=== PATIENT | female | born 1940 | race Caucasian/White ===

== ENCOUNTER 2017-03-12 19:18 | Inpatient (IN) | payer BC ==
[2017-03-12 19:41] VITALS: BMI 33.5
--- NOTE | 2017-03-12 20:20 | PDOC ---
History of Present Illness <Gretchen Laughlin - Last Filed: 03/12/17 21:26> <CristóbalKathimadyson Sarmiento - Last Filed: 03/12/17 22:25> - General Chief Complaint: Chest Pain Stated Complaint: CHEST PAIN Time Seen by Provider: 03/12/17 19:51 - History of Present Illness Initial Comments: 03/12/17 20:51 The patient is a 76 year old female, with a significant past medical history of HTN, allergies, RA, and chronic lower back pain, who presents to the emergency department with general malaise and chest pain since this morning. Patient states that she woke up this morning with nausea, dry heaves, mid-sternal chest pain and felt bleh. She also states that she has a headache, slight dry cough, and is constipated. She denies recent fevers, chills, headache or dizziness. She denies recent vomit , or diarrhea. She denies recent dysuria, frequency, urgency or hematuria. She denies recent shortness of breath. Allergies: penicillins, sulfa Past surgical history: right knee replacement, right mastectomy (87), total hysterectomy (89) Social history: Nonsmoker. Denies EtOH use and recreational drug use. Primary Care Physician: [employer] Gener[employer] Repairer: [employer] (Gretchen Lauhglin) Past History <Gretchen Laughlin - Last Filed: 03/12/17 21:26> - Past Medical History Anemia: No Asthma: No Cancer: Yes (breast) Cardiac Disorders: No CVA: No COPD: No CHF: No Dementia: No Diabetes: No GI Disorders: Yes Disorders: No HTN: Yes Hypercholesterolemia: Yes Liver Disease: No Seizures: No Thyroid Disease: No - Surgical History Abdominal Surgery: No Appendectomy: No Cardiac Surgery: No Cholecystectomy: No Lung Surgery: No Neurologic Surgery: No Orthopedic Surgery: No - Suicide/Smoking/Psychosocial Hx Smoking History: Never smoked Have you smoked in the past 12 months: No Hx Alcohol Use: No Drug/Substance Use Hx: No Substance Use Type: None Hx Substance Use Treatment: No <Kathi Ambrocio - Last Filed: 03/12/17 22:25> - Past Medical History Allergies/Adverse Reactions: Allergies Allergy/AdvReac Type Severity Reaction Status Date / Time Penicillins Allergy Severe Swelling Verified 03/12/17 19:38 Sulfa (Sulfonamide AdvReac Intermediate Rash Verified 03/12/17 19:38 Antibiotics) Home Medications: Ambulatory Orders Atorvastatin Ca [Lipitor] 20 mg PO HS 05/26/13 Folic Acid 0.8 mg PO DAILY 05/26/13 Montelukast Na [Singulair -] 10 mg PO HS 05/26/13 Nadolol 80 mg PO DAILY 05/26/13 Flaxseed [Flaxseed Oil] 1,000 mg PO DAILY 06/01/13 Multivits-Min/FA/Lycopene/Lut [Centrum Silver Tablet] 1 each PO DAILY 06/01/13 Amlodipine Besylate [Norvasc -] 2.5 mg PO DAILY 04/14/15 Etanercept [Enbrel] 50 mg SQ WEEKLY 04/14/15 Hydrochlorothiazide [Hctz -] 12.5 mg PO DAILY 04/14/15 Methotrexate [Mexate -] 20 mg PO Q7D 04/14/15 Psyllium Husk (with Sugar) [Metamucil Powder] 538 gm PO BID 04/14/15 Aspirin [ASA -] 325 mg PO DAILY@0800 tablet 04/30/15 Cardiac Specific PMH - Complaint Specific PMHX Pacemaker: No <Kathi Ambrocio - Last Filed: 03/12/17 22:25> Review of Systems <Gretchen Laughlin - Last Filed: 03/12/17 21:26> <Kathi Ambrocio - Last Filed: 03/12/17 22:25> - Review of Systems Comments:: 03/12/17 20:56 CONSTITUTIONAL: Present: Afebrile, general malaise. Absent: chills, diaphoresis, loss of appetite HEENT: Absent: rhinorrhea, nasal congestion, throat pain, throat swelling, difficulty swallowing, mouth swelling, ear pain, eye pain, visual Changes CARDIOVASCULAR: Absent: chest pain, syncope, palpitations, irregular heart rate, lightheadedness , peripheral edema RESPIRATORY: Present: cough Absent: shortness of breath, dyspnea with exertion, orthopnea, wheezing, stridor, hemoptysis GASTROINTESTINAL: Present: nausea, constipation Absent: abdominal pain, abdominal distension,vomiting, diarrhea, melena, hematochezia GENITOURINARY: Absent: dysuria, frequency, urgency, hesitancy, hematuria, flank pain, genital pain MUSCULOSKELETAL: Absent: myalgia, arthralgia, joint swelling SKIN: Absent: rash, itching, pallor HEMATOLOGIC/IMMUNOLOGIC: Absent: easy bleeding, easy bruising, lymphadenopathy, frequent infections ENDOCRINE: Absent: unexplained weight gain, unexplained weight loss, heat intolerance, cold intolerance NEUROLOGIC: Present: slight headache Absent: focal weakness or paresthesias, dizziness, unsteady gait, seizure, mental status changes, bladder or bowel incontinence (Gretchen aLughlin) *Physical Exam <Gretchen Laughlin - Last Filed: 03/12/17 21:26> <CristóbalKathi Sarmiento - Last Filed: 03/12/17 22:25> - Vital Signs Last Vital Signs Temp Pulse Resp BP Pulse Ox 101.2 F H 98 H 16 128/76 98 03/12/17 19:30 03/12/17 19:30 03/12/17 19:30 03/12/17 19:30 03/12/17 19:30 - Physical Exam Comments: 03/12/17 20:56 GENERAL: Afebrile. Well developed, well nourished. Awake and alert. No acute distress. HEENT: Normocephalic, atraumatic. PERRLA, EOMI. No conjunctival pallor. Sclera are non- icteric. Moist mucous membranes. Oropharynx is clear. NECK: Supple. Full ROM. No JVD. Carotid pulses 2+ and symmetric, without bruits. No thyromegaly. No lymphadenopathy. CARDIOVASCULAR: Tachycardic. No murmurs, rubs, or gallops. Distal pulses are 2+ and symmetric. PULMONARY: No evidence of respiratory distress. Lungs clear to auscultation bilaterally. No wheezing, rales or rhonchi. ABDOMINAL: Constipated. Soft. Non-tender. Non-distended. No rebound or guarding. No organomegaly. Normoactive bowel sounds. MUSCULOSKELETAL Normal range of motion at all joints. No bony deformities or tenderness. No CVA tenderness. EXTREMITIES: No cyanosis. No clubbing. No edema. No calf tenderness. SKIN: +1 pitting edema in lower extremities. Warm and dry. No rashes. No jaundice. NEUROLOGICAL: Alert, awake, appropriate. Cranial nerves 2-12 intact. No deficits to light touch and temperature in face, upper extremities and lower extremities. No motor deficits in the in face, upper extremities and lower extremities. Normoreflexic in the upper and lower extremities. Normal speech. Toes are down-going bilaterally. Gait is normal without ataxia. PSYCHIATRIC: Cooperative. Good eye contact. Appropriate mood and affect. (Gretchen Laughlin) Heart Score/ECG Review <Gretchen Laughlin - Last Filed: 03/12/17 21:26> <Kathi Ambrocio - Last Filed: 03/12/17 22:25> - ECG Intrepretation Comment:: 03/12/17 19:27:21 EKG Interpretation: Normal sinus rhythm Minimal voltage criteria for LVH, may be normal variant Vent. rate: 97 bpm (Gretchen Laughlin) ED Treatment Course - LABORATORY CBC & Chemistry Diagram: 03/12/17 20:30 03/12/17 20:30 <Gretchen Laughlin - Last Filed: 03/12/17 21:26> - LABORATORY CBC & Chemistry Diagram: 03/12/17 20:30 03/12/17 20:30 <Kathi Ambrocio - Last Filed: 03/12/17 22:25> - ADDITIONAL ORDERS Additional order review: Laboratory Results 03/12/17 03/12/17 03/12/17 22:00 20:32 20:32 PT with INR INR PTT (Actin FS) VBG pH 7.45 H POC VBG pCO2 39.6 POC VBG pO2 50.1 H Mixed VBG HCO3 27.3 H Sodium Potassium Chloride Carbon Dioxide Anion Gap BUN Creatinine Creat Clearance w eGFR Random Glucose Lactic Acid Calcium Total Bilirubin AST ALT Alkaline Phosphatase Creatine Kinase Troponin I B-Natriuretic Peptide Total Protein Albumin Urine Color Ltyellow Urine Appearance Clear Urine pH 8.0 D Ur Specific [place] 1.013 Urine Protein Negative Urine Glucose (UA) Negative Urine Ketones Negative Urine Blood Negative Urine Nitrite Negative Urine Bilirubin Negative Urine Urobilinogen Negative Ur Leukocyte Esterase Negative Blood Type O POSITIVE Antibody Screen Negative 03/12/17 03/12/17 03/12/17 20:30 20:30 20:30 PT with INR INR PTT (Actin FS) VBG pH POC VBG pCO2 POC VBG pO2 Mixed VBG HCO3 Sodium 138 Potassium 3.9 Chloride 101 Carbon Dioxide 26 Anion Gap 11 BUN 18 Creatinine 0.9 Creat Clearance w eGFR > 60 Random Glucose 113 H D Lactic Acid 1.4 Calcium 9.0 Total Bilirubin 0.8 D AST 21 D ALT 30 D Alkaline Phosphatase 111 Creatine Kinase 58 Troponin I < 0.02 B-Natriuretic Peptide 347.97 Total Protein 7.2 Albumin 3.7 Urine Color Urine Appearance Urine pH Ur Specific [place] Urine Protein Urine Glucose (UA) Urine Ketones Urine Blood Urine Nitrite Urine Bilirubin Urine Urobilinogen Ur Leukocyte Esterase Blood Type Antibody Screen 03/12/17 20:30 PT with INR 11.90 H INR 1.05 PTT (Actin FS) 31.2 VBG pH POC VBG pCO2 POC VBG pO2 Mixed VBG HCO3 Sodium Potassium Chloride Carbon Dioxide Anion Gap BUN Creatinine Creat Clearance w eGFR Random Glucose Lactic Acid Calcium Total Bilirubin AST ALT Alkaline Phosphatase Creatine Kinase Troponin I B-Natriuretic Peptide Total Protein Albumin Urine Color Urine Appearance Urine pH Ur Specific [place] Urine Protein Urine Glucose (UA) Urine Ketones Urine Blood Urine Nitrite Urine Bilirubin Urine Urobilinogen Ur Leukocyte Esterase Blood Type Antibody Screen 03/12/17 20:50 Influenza Types A,B Antigen (NAOMIE) - Final Nasopharyngeal Swab - Final 03/12/17 20:30 RBC 4.55 D MCV 97.7 H MCHC 33.3 RDW 14.2 MPV 8.8 D Neutrophils % 84.2 H Lymphocytes % 6.7 L Monocytes % 8.5 Eosinophils % 0.1 D Basophils % 0.5 - RADIOLOGY Radiology Studies Ordered: Category Date Time Status CHEST X-RAY PORTABLE* [RAD] Stat Radiology 03/12/17 20:28 Taken - Medications Given in the ED: ED Medications Discontinued Medications Generic Name Dose Route Start Last Admin Trade Name Porterq PRN Reason Stop Dose Admin Acetaminophen 1,000 mg 03/12/17 20:30 03/12/17 20:51 Ofirmev Injection - IVPB 03/12/17 20:31 1,000 mg ONCE ONE Administration Ondansetron HCl 4 mg 03/12/17 20:30 03/12/17 20:52 Zofran Injection IVPUSH 03/12/17 20:31 4 mg ONCE ONE Administration *DC/Admit/Observation/Transfer <Gretchen Laughlin - Last Filed: 03/12/17 21:26> - Discharge Dispostion Admit: Yes <Kathi Ambrocio - Last Filed: 03/12/17 22:25> Diagnosis at time of Disposition: Atypical chest pain Fever Qualifiers: Fever type: due to other condition Qualified Code(s): R50.81 - Fever presenting with conditions classified elsewhere Pneumonia Qualifiers: Pneumonia type: due to unspecified organism Laterality: left Lung location: unspecified part of lung Qualified Code(s): J18.9 - Pneumonia, unspecified organism - Referrals Referrals: Jan Dodson MD [Primary Care Provider] - - Patient Instructions - Post Discharge Activity - Attestations Scribe Attestion: 03/12/17 20:59 Documentation prepared by Gretchen Laughlin, acting as medical aide for Kathi Ambrocio MD. (Truman,Gretchen)
[2017-03-12] MEDS ORDERED: ACETAMINOPHEN 1000 MG/100 ML VIAL (NON FORMULARY) IVPB ONE (20:30)
[2017-03-12] MEDS ORDERED: ONDANSETRON 4 MG/2 ML VIAL IVPUSH ONE (20:30)
[2017-03-12] MEDS ORDERED: ONDANSETRON 4 MG/2 ML VIAL ONE (20:42)
[2017-03-12] MEDS ORDERED: ACETAMINOPHEN INJECTION 100 ML IVPB ONE (20:42)
[2017-03-12 21:04] LABS: VENOUS PC02 39.6 mmHg (38-52); VENOUS PH 7.45 (7.32-7.42); VENOUS PO2 50.1 mmHg (28-48)
[2017-03-12 21:19] LABS: BASO % 0.5 % (0-2.0); EOS % 0.1 % (0-4.5); HEMATOCRIT 44.4 % (32.4-45.2); HEMOGLOBIN 14.8 GM/dL (10.7-15.3); LYMPH % 6.7 % (8-40); MCH 32.5 pg (25.7-33.7); MCHC 33.3 g/dl (32.0-36.0); MEAN CELL VOLUME 97.7 fl (80-96); MEAN PLT VOLUME 8.8 fl (7.5-11.1); MONO % 8.5 % (3.8-10.2); NEUT % 84.2 % (42.8-82.8); PLATELET COUNT 242 K/MM3 (134-434); RBC 4.55 M/mm3 (3.60-5.2); RDW 14.2 % (11.6-15.6); WHITE BLOOD COUNT 11.2 K/mm3 (4.0-10.0)
[2017-03-12 21:37] LABS: INR 1.05 (0.82-1.09); PROTHROMBIN TIME (PATIENT) 11.9 SEC (9.98-11.88)
[2017-03-12 21:40] LABS: ACTIVATED PTT 31.2 SECONDS (26.9-34.4)
[2017-03-12 21:49] LABS: ALBUMIN 3.7 g/dl (3.4-5.0); ANION GAP 11 (8-16); BLOOD UREA NITROGEN 18 mg/dL (7-18); CHLORIDE 101 mmol/L (98-107); CO2 26 mmol/L (21-32); CREATININE 0.9 mg/dL (0.55-1.02); GLUCOSE,RANDOM 113 mg/dL (74-106); POTASSIUM 3.9 mmol/L (3.5-5.1); SGOT/AST 21 U/L (15-37); SGPT/ALT 30 U/L (12-78); SODIUM 138 mmol/L (136-145)
[2017-03-12 21:57] LABS: ALK PHOS 111 U/L (45-117); BILIRUBIN,TOTAL 0.8 mg/dL (0.2-1.0); TOT PROT 7.2 g/dl (6.4-8.2)
[2017-03-12] MEDS ORDERED: AZTREONAM 1 GM in DEXTROSE 5%-WATER - 50 ML IVPB STA (22:16)
--- NOTE | 2017-03-12 22:16 | PN ---
Teaching Attending Note Name of Resident: Jason Alvarado ATTENDING PHYSICIAN STATEMENT I saw and evaluated the patient. I reviewed the resident's note and discussed the case with the resident. I agree with the resident's findings and plan as documented. SUBJECTIVE: 76 F with pmhx of htn, RA, chronic back pain, who presents with nausea and midsternal chest pain. Also, had associated "dry heaves." States she is on Methotrexate and Enbrel for her RA. States she takes her flu shot and has not been around any sick contacts. Notes a cough, although not productive. No abdominal pain. Nausea has now subsided. No current chest pain or pressure. OBJECTIVE: Physical: VS: Vital Signs Period Temp Pulse Resp BP Sys/Tang Pulse Ox Last 24 Hr 101.2 F 98 16 128/76 98 GEN: NAD, Resting in bed, able to speak full sentences HEENT: NCAT, PERRL, throat without erythema or exudates CARD: RRR S1, S2 RESP: BS Decreased at left base ABD: BS X4, Soft, not-distended, non-tender to palpation EXT: - C/C/E CBCD WBC 11.2 K/mm3 (4.0-10.0) H D 03/12/17 20:30 RBC 4.55 M/mm3 (3.60-5.2) D 03/12/17 20:30 Hgb 14.8 GM/dL (10.7-15.3) D 03/12/17 20:30 Hct 44.4 % (32.4-45.2) D 03/12/17 20:30 MCV 97.7 fl (80-96) H 03/12/17 20:30 MCHC 33.3 g/dl (32.0-36.0) 03/12/17 20:30 RDW 14.2 % (11.6-15.6) 03/12/17 20:30 Plt Count 242 K/MM3 (134-434) D 03/12/17 20:30 MPV 8.8 fl (7.5-11.1) D 03/12/17 20:30 CMP Sodium 138 mmol/L (136-145) 03/12/17 20:30 Potassium 3.9 mmol/L (3.5-5.1) 03/12/17 20:30 Chloride 101 mmol/L (98-107) 03/12/17 20:30 Carbon Dioxide 26 mmol/L (21-32) 03/12/17 20:30 Anion Gap 11 (8-16) 03/12/17 20:30 BUN 18 mg/dL (7-18) 03/12/17 20:30 Creatinine 0.9 mg/dL (0.55-1.02) 03/12/17 20:30 Creat Clearance w eGFR > 60 (>60) 03/12/17 20:30 Random Glucose 113 mg/dL (74-106) H D 03/12/17 20:30 Calcium 9.0 mg/dL (8.5-10.1) 03/12/17 20:30 Total Bilirubin 0.8 mg/dL (0.2-1.0) D 03/12/17 20:30 AST 21 U/L (15-37) D 03/12/17 20:30 ALT 30 U/L (12-78) D 03/12/17 20:30 Alkaline Phosphatase 111 U/L (45-117) 03/12/17 20:30 Total Protein 7.2 g/dl (6.4-8.2) 03/12/17 20:30 Albumin 3.7 g/dl (3.4-5.0) 03/12/17 20:30 CARDIAC ENZYMES Creatine Kinase 58 IU/L (26-192) 03/12/17 20:30 Troponin I < 0.02 ng/ml (0.00-0.05) 03/12/17 20:30 EKG: NSR, LVH, Qtc 459 CXR- ? Consolidation Left base, await final read HEART- 2 Home Medications Medication Instructions Recorded Atorvastatin Ca [Lipitor] 20 mg PO HS 05/26/13 Folic Acid 0.8 mg PO DAILY 05/26/13 Montelukast Na [Singulair -] 10 mg PO HS 05/26/13 Nadolol 80 mg PO DAILY 05/26/13 Flaxseed [Flaxseed Oil] 1,000 mg PO DAILY 06/01/13 Multivits-Min/FA/Lycopene/Lut 1 each PO DAILY 06/01/13 [Centrum Silver Tablet] Amlodipine Besylate [Norvasc -] 2.5 mg PO DAILY 04/14/15 Etanercept [Enbrel] 50 mg SQ WEEKLY 04/14/15 Hydrochlorothiazide [Hctz -] 12.5 mg PO DAILY 04/14/15 Methotrexate [Mexate -] 20 mg PO Q7D 04/14/15 Psyllium Husk (with Sugar) 538 gm PO BID 04/14/15 [Metamucil Powder] Aspirin [ASA -] 325 mg PO DAILY@0800 tablet 04/30/15 Urine Test Results Urine Color Ltyellow 03/12/17 22:00 Urine Appearance Clear 03/12/17 22:00 Urine pH 8.0 (5.0-8.0) D 03/12/17 22:00 Ur Specific [place] 1.013 (1.001-1.035) 03/12/17 22:00 Urine Protein Negative (NEGATIVE) 03/12/17 22:00 Urine Glucose (UA) Negative (NEGATIVE) 03/12/17 22:00 Urine Ketones Negative (NEGATIVE) 03/12/17 22:00 Urine Blood Negative (NEGATIVE) 03/12/17 22:00 Urine Nitrite Negative (NEGATIVE) 03/12/17 22:00 Urine Bilirubin Negative (NEGATIVE) 03/12/17 22:00 Ur Leukocyte Esterase Negative (NEGATIVE) 03/12/17 22:00 ASSESSMENT AND PLAN: 76 F with pmhx of htn, RA, chronic back pain, who presents with nausea and midsternal chest pain, who is being admitted for possible pneumonia 1.) Pnuemonia, Community Aquired - Immunocompromised due to RA meds - Broad spectrum with Vanc/Aztreo (PCN Allergy) - Urine Ags - Morin Cx - Repeat LA - IVF 2.) Chest Pain - Atypical - Trend Trop/EKg 3.) RA - Enbrel and Mexate Q wk - Hold for now - C/W Folic Acid 4.) HTN - C/W Home meds 5.) Dvt Ppx - Heparin [address] in Med-Sx
[2017-03-12] MEDS ORDERED: VANCOMYCIN 1,000 MG in DEXTROSE 5%-WATER - 250 ML IVPB STA (22:17)
--- NOTE | 2017-03-12 22:18 | HP ---
CHIEF COMPLAINT: Chest pain , Nausea PCP:Dr. Dodson HISTORY OF PRESENT ILLNESS: The patient is a 76 year old female, with a significant past medical history of HTN, allergies, RA, and chronic lower back pain, who presents to the emergency department with general malaise and chest pain since this morning. Patient states that she woke up this morning with nausea, dry heaves, mid-sternal chest pain 5/10, local non radiating, not related to position. She also states that she has a headache, slight dry cough, and is constipated. She reports runny nose with some congestion today morning She denies recent fevers, chills, lightheadedness or dizziness. She denies recent vomit, or diarrhea. She denies recent dysuria, frequency, urgency or hematuria. She denies recent shortness of breath. denies sick contact or recent tarvel. [employer] Advisor: Lefty ER course was notable for: (1) CXR , IV ABX Aztreonam/ vanco (2)CBC, CMP (3)UA negative , Influenza A,B negative Recent Travel: denies PAST MEDICAL HISTORY: PAST SURGICAL HISTORY: right knee replacement, right mastectomy (87), total hysterectomy (89) Social History: Smoking:NO Alcohol:NO Drugs: NO Family History: lorier @ 92 YO , old age Mother @ 69 with Epmyema Allergies Penicillins Allergy (Severe, Verified 03/12/17 19:38) Swelling Sulfa (Sulfonamide Antibiotics) Adverse Reaction (Intermediate, Verified 19:38) Rash HOME MEDICATIONS: Home Medications Medication Instructions Recorded Atorvastatin Ca [Lipitor] 20 mg PO HS 05/26/13 Folic Acid 0.8 mg PO DAILY 05/26/13 Montelukast Na [Singulair -] 10 mg PO HS 05/26/13 Nadolol 80 mg PO DAILY 05/26/13 Flaxseed [Flaxseed Oil] 1,000 mg PO DAILY 06/01/13 Multivits-Min/FA/Lycopene/Lut 1 each PO DAILY 06/01/13 [Centrum Silver Tablet] Amlodipine Besylate [Norvasc -] 2.5 mg PO DAILY 04/14/15 Etanercept [Enbrel] 50 mg SQ WEEKLY 04/14/15 Hydrochlorothiazide [Hctz -] 12.5 mg PO DAILY 04/14/15 Methotrexate [Mexate -] 20 mg PO Q7D 04/14/15 Psyllium Husk (with Sugar) 538 gm PO BID 04/14/15 [Metamucil Powder] Aspirin [ASA -] 325 mg PO DAILY@0800 tablet 04/30/15 REVIEW OF SYSTEMS CONSTITUTIONAL: Absent: fever, chills, diaphoresis, generalized weakness, malaise, loss of appetite, weight change HEENT: Absent: rhinorrhea, nasal congestion, throat pain, throat swelling, difficulty swallowing, mouth swelling, ear pain, eye pain, visual changes CARDIOVASCULAR: Absent: chest pain, syncope, palpitations, irregular heart rate, lightheadedness , peripheral edema RESPIRATORY: Absent: cough, shortness of breath, dyspnea with exertion, orthopnea, wheezing, stridor, hemoptysis GASTROINTESTINAL: Absent: abdominal pain, abdominal distension, nausea, vomiting, diarrhea, constipation, melena, hematochezia GENITOURINARY: Absent: dysuria, frequency, urgency, hesitancy, hematuria, flank pain, genital pain MUSCULOSKELETAL: Absent: myalgia, arthralgia, joint swelling, back pain, neck pain SKIN: Absent: rash, itching, pallor HEMATOLOGIC/IMMUNOLOGIC: Absent: easy bleeding, easy bruising, lymphadenopathy, frequent infections ENDOCRINE: Absent: unexplained weight gain, unexplained weight loss, heat intolerance, cold intolerance NEUROLOGIC: Absent: headache, focal weakness or paresthesias, dizziness, unsteady gait, seizure, mental status changes, bladder or bowel incontinence PSYCHIATRIC: Absent: anxiety, depression, suicidal or homicidal ideation, hallucinations. PHYSICAL EXAMINATION Vital Signs - 24 hr 03/12/17 19:30 Temperature 101.2 F H Pulse Rate 98 H Respiratory 16 Rate Blood Pressure 128/76 O2 Sat by Pulse 98 Oximetry (%) GENERAL: Awake, alert, and fully oriented, in no acute distress. HEAD: Normal with no signs of trauma. EYES: Pupils equal, round and reactive to light, sclera anicteric, conjunctiva clear. EARS, NOSE, THROAT: Moist mucous membranes. NECK: Normal range of motion, supple without lymphadenopathy, LUNGS: Breath sounds equal, clear to auscultation bilaterally. No wheezes, and no crackles. No accessory muscle use. HEART: Regular rate and rhythm, normal S1 and S2 without murmur, rub or gallop. ABDOMEN: Soft, nontender, not distended, normoactive bowel sounds, no guarding, no rebound, no masses. No hepatomegaly or splenomegaly. LOWER EXTREMITIES: 2+ pulses, warm, well-perfused. No calf tenderness. trace peripheral edema. NEUROLOGICAL: no focal deficit ,Normal speech. Normal gait. PSYCHIATRIC: Cooperative. Good eye contact. Appropriate mood and affect. SKIN: Warm, dry, normal turgor, no rashes or lesions noted, Laboratory Results - last 24 hr 03/12/17 03/12/17 03/12/17 20:30 20:30 20:30 WBC 11.2 H D RBC 4.55 D Hgb 14.8 D Hct 44.4 D MCV 97.7 H MCH 32.5 MCHC 33.3 RDW 14.2 Plt Count 242 D MPV 8.8 D Neutrophils % 84.2 H Lymphocytes % 6.7 L Monocytes % 8.5 Eosinophils % 0.1 D Basophils % 0.5 PT with INR 11.90 H INR 1.05 PTT (Actin FS) 31.2 VBG pH POC VBG pCO2 POC VBG pO2 Mixed VBG HCO3 Sodium 138 Potassium 3.9 Chloride 101 Carbon Dioxide 26 Anion Gap 11 BUN 18 Creatinine 0.9 Creat Clearance w eGFR > 60 Random Glucose 113 H D Lactic Acid Calcium 9.0 Total Bilirubin 0.8 D AST 21 D ALT 30 D Alkaline Phosphatase 111 Creatine Kinase 58 Troponin I < 0.02 B-Natriuretic Peptide Total Protein 7.2 Albumin 3.7 Blood Type Antibody Screen 03/12/17 03/12/17 03/12/17 20:30 20:30 20:32 WBC RBC Hgb Hct MCV MCH MCHC RDW Plt Count MPV Neutrophils % Lymphocytes % Monocytes % Eosinophils % Basophils % PT with INR INR PTT (Actin FS) VBG pH 7.45 H POC VBG pCO2 39.6 POC VBG pO2 50.1 H Mixed VBG HCO3 27.3 H Sodium Potassium Chloride Carbon Dioxide Anion Gap BUN Creatinine Creat Clearance w eGFR Random Glucose Lactic Acid 1.4 Calcium Total Bilirubin AST ALT Alkaline Phosphatase Creatine Kinase Troponin I B-Natriuretic Peptide 347.97 Total Protein Albumin Blood Type Antibody Screen 03/12/17 20:32 WBC RBC Hgb Hct MCV MCH MCHC RDW Plt Count MPV Neutrophils % Lymphocytes % Monocytes % Eosinophils % Basophils % PT with INR INR PTT (Actin FS) VBG pH POC VBG pCO2 POC VBG pO2 Mixed VBG HCO3 Sodium Potassium Chloride Carbon Dioxide Anion Gap BUN Creatinine Creat Clearance w eGFR Random Glucose Lactic Acid Calcium Total Bilirubin AST ALT Alkaline Phosphatase Creatine Kinase Troponin I B-Natriuretic Peptide Total Protein Albumin Blood Type O POSITIVE Antibody Screen Negative CBC, BMP 03/12/17 20:30 03/12/17 20:30 03/12/2017 CXR pending reading EKG NSR, QT 362 , please caution with zofran ASSESSMENT/PLAN: The patient is a 76 year old female, with a significant past medical history of HTN, allergies, RA, and chronic lower back pain, who presents to the emergency department with general malaise and chest pain since this morning. was found to have sepsis 2/2 possible pneumonia was admitted to [facility] for further evaluation and treatment. # Sepsis 2/2 possible CAP * temp 101.2 , HR 98, possible pneumonia * CXR pending reading * Influenza A,B negative * sputum cx , urine cx * UA negative * LA f/u result * repeat CBC, CMP , CRP , ESR * urine legionella Ag * Immunocompromised due to RA meds * Broad spectrum with Vanc/Aztreo, allergic to pen * IV fluid NS @75 cc/hr # Chest pain atypical likely 2/2 pneumonia unlikely CA * EKG sinus Rhythm with no significant ST,T wave changes * Trend trop , * # HTN * controlled * continue Norvasc 2.5 mg Po daily * continue HCTZ 12.5 daily PO * Continue Nadolol 80 po daily # Nausea * with little vomitting * Zofran 4 mg IV once in ED * QT 362 please be caution with zofran # HLD * continue Lipitor 20 Po HS # RA * in no flares * Hold home meds Methotrexat and ethanercept * Continue folic acid # Obesity * BMI 33.5 * Counselled * HGBA1C # FEN * NS @ 75 CC/hr * E: WNL * N: low sodium diet #Proph * DVT : SCDS Both legs , Hep 5000 Qhr * GI : No need # Dispo * Admit to med surg Visit type - Emergency Visit Emergency Visit: Yes ED Registration Date: 03/12/17 Care time: The patient presented to the Emergency Department on the above date and was hospitalized for further evaluation of their emergent condition. - New Patient This patient is new to me today: No - Critical Care Critical Care patient: No
[2017-03-12 22:21] LABS: URINE APPEARANCE CLEAR; URINE BILIRUBIN NEGATIVE (NEGATIVE); URINE BLOOD NEGATIVE (NEGATIVE); URINE COLOR LTYELLOW; URINE GLUCOSE (UA) NEGATIVE (NEGATIVE); URINE KETONE NEGATIVE (NEGATIVE); URINE LEUK ESTERASE NEGATIVE (NEGATIVE); URINE NITRITE NEGATIVE (NEGATIVE); URINE PROTEIN NEGATIVE (NEGATIVE); URINE UROBILINOGEN NEGATIVE mg/dL (0.2-1.0)
[2017-03-12] MEDS ORDERED: VANCOMYCIN 1 GRAM (PRE-DOCKED) 1,000 MG/250 ML BAG IVPB ONE (22:49)
[2017-03-12] MEDS ORDERED: AZTREONAM 1 GRAM SYRINGE 1 GM/10 ML DISP.SYRIN IVPUSH ONE (23:00)
[2017-03-12] MEDS ORDERED: ACETAMINOPHEN 325 MG TABLET (FP) PO PRN (23:04)
[2017-03-12] MEDS ORDERED: METHOTREXATE 2.5 MG TABLET PO SCH (23:30)
[2017-03-12] MEDS ORDERED: PATIENT'S OWN MEDICATION (NON-FORMULARY) (Etanercept [Enbrel] 50 MG) SQ SCH (23:30)
[2017-03-12] MEDS: SODIUM CHLORIDE 1,000 ML IV SCH (23:52)
[2017-03-13] MEDS: HEPARIN NA (PORCINE) 5,000 UNITS/ML 1ML VIAL SQ SCH ×3 (06:36→21:33)
[2017-03-13 07:11] LABS: ANION GAP 6 (8-16); BILIRUBIN,TOTAL 1.1 mg/dL (0.2-1.0); BLOOD UREA NITROGEN 14 mg/dL (7-18); CALCIUM 8.1 mg/dL (8.5-10.1); CHLORIDE 108 mmol/L (98-107); CO2 28 mmol/L (21-32); CREATININE 0.7 mg/dL (0.55-1.02); GLUCOSE,RANDOM 97 mg/dL (74-106); POTASSIUM 3.7 mmol/L (3.5-5.1); SGOT/AST 14 U/L (15-37); SGPT/ALT 24 U/L (12-78); SODIUM 142 mmol/L (136-145); TOT PROT 5.9 g/dl (6.4-8.2)
[2017-03-13 07:12] LABS: ALK PHOS 87 U/L (45-117)
[2017-03-13] MEDS ORDERED: PT OWN MED DRAWER 7, Y5N ONE (09:26)
[2017-03-13] MEDS: FOLIC ACID 1 MG TABLET (FP) PO SCH (09:37)
[2017-03-13] MEDS: ASPIRIN 325 MG TABLET PO SCH (09:37)
[2017-03-13] MEDS ORDERED: FLAXSEED 1000 MG PO SCH (10:00)
[2017-03-13] MEDS ORDERED: amLODIPine BESYLATE 2.5 MG TABLET (FP) PO SCH ×2 (10:00→10:06)
[2017-03-13] MEDS ORDERED: NADOLOL 40 MG TABLET (FP) PO SCH ×2 (10:00→10:06)
[2017-03-13] MEDS ORDERED: HYDROCHLOROTHIAZIDE 12.5 MG CAPSULE (FP) PO SCH ×2 (10:00→10:05)
--- NOTE | 2017-03-13 10:33 | PN ---
Progress Note, Physician Chief Complaint: Ms Rosas says she is feeling much better today. She has more energy and is no longer feeling malaise. No cp, sob, n/v. - Current Medication List Current Medications: Active Medications Acetaminophen (Tylenol -) 650 mg PO Q6H PRN PRN Reason: FEVER OR PAIN Last Admin: 03/13/17 06:35 Dose: 650 mg Amlodipine Besylate (Norvasc -) 2.5 mg PO DAILY [facility] Aspirin (Asa -) 325 mg PO DAILY@0800 [facility] Last Admin: 03/13/17 09:37 Dose: 325 mg Atorvastatin Calcium (Lipitor -) 20 mg PO HS [facility] Folic Acid (Folic Acid -) 1 mg PO DAILY [facility] Last Admin: 03/13/17 09:37 Dose: 1 mg Heparin Sodium (Porcine) (Heparin -) 5,000 unit SQ TID [facility] Last Admin: 03/13/17 06:36 Dose: 5,000 unit Hydrochlorothiazide (Hctz -) 12.5 mg PO DAILY [facility] Sodium Chloride (Normal Saline -) 1,000 mls @ 75 mls/hr IV ASDIR [facility] Last Admin: 03/12/17 23:52 Dose: 75 mls/hr Montelukast Sodium (Singulair -) 10 mg PO HS [facility] Nadolol (Corgard -) 80 mg PO DAILY [facility] - Objective Vital Signs: Vital Signs Temperature 36.9 C 03/13/17 06:00 Pulse Rate 75 03/13/17 09:53 Respiratory Rate 20 03/13/17 06:00 Blood Pressure 107/72 03/13/17 06:00 O2 Sat by Pulse Oximetry (%) 96 03/13/17 09:53 Constitutional: Yes: Well Nourished, No Distress, Calm Cardiovascular: Yes: Regular Rate and Rhythm. No: Gallop, Murmur, Rub Respiratory: Yes: Regular, CTA Bilaterally. No: Rhonchi, Wheezes Gastrointestinal: Yes: Normal Bowel Sounds, Soft. No: Distention, Tenderness Extremities: Yes: WNL Edema: No Labs: CBC, BMP 03/12/17 20:30 03/13/17 05:10 INR, PTT INR 1.05 (0.82-1.09) 03/12/17 20:30 Problem List - Problems (1) SIRS (systemic inflammatory response syndrome) Assessment/Plan: -patient presents with sepsis/SIRS picture -feeling improved today -with quick recovery, ? viral illness -however since immunocompromised must treat as bacterial infection -appreciate ID assistance -received vancomycin and aztreonam -defer further antibiotics to ID -follow up cultures Code(s): R65.10 - SIRS OF NON-INFECTIOUS ORIGIN W/O ACUTE ORGAN DYSFUNCTION (2) HTN (hypertension) Assessment/Plan: -low blood pressure secondary SIRS -continue hydration -hold parameters placed on anti-hypertensives Code(s): I10 - ESSENTIAL (PRIMARY) HYPERTENSION (3) HLD (hyperlipidemia) Assessment/Plan: -continue statin Code(s): E78.5 - HYPERLIPIDEMIA, UNSPECIFIED (4) Rheumatoid arthritis Assessment/Plan: -holding medications while treating for infection Code(s): M06.9 - RHEUMATOID ARTHRITIS, UNSPECIFIED
--- NOTE | 2017-03-13 12:21 | EKG ---
Test Reason : Blood Pressure : / mmHG Vent. Rate : 069 BPM Atrial Rate : 069 BPM P-R Int : 192 ms QRS Dur : 078 ms QT Int : 420 ms P-R-T Axes : 047 001 035 degrees QTc Int : 450 ms NORMAL SINUS RHYTHM NORMAL ECG WHEN COMPARED WITH ECG OF 26-MAY-2013 11:24, VENT. RATE HAS DECREASED BY [address] SEGMENT ELEVATION NOTED ? PERICARDITIS ? NORMAL VARIANT CLINICAL CORRELATION IS RECOMMENDED Confirmed by KJ EVANS, COURTNEY ([id number]) on 03/13/2017 12:21:27 PM Referred By: Confirmed By:COURTNEY UNDERWOOD MD
--- NOTE | 2017-03-13 12:44 | EKG ---
Test Reason : Blood Pressure : / mmHG Vent. Rate : 097 BPM Atrial Rate : 097 BPM P-R Int : 172 ms QRS Dur : 074 ms QT Int : 362 ms P-R-T Axes : 038 -11 041 degrees QTc Int : 459 ms NORMAL SINUS RHYTHM MINIMAL VOLTAGE CRITERIA FOR LVH, MAY BE NORMAL VARIANT BORDERLINE ECG WHEN COMPARED WITH ECG OF 26-MAY-2013 11:24, NO SIGNIFICANT CHANGE WAS FOUND Confirmed by KJ EVANS, COURTNEY ([id number]) on 03/13/2017 12:44:16 PM Referred By: Confirmed By:COURTNEY UNDERWOOD MD
--- NOTE | 2017-03-13 14:00 | CON.ID ---
Consult Consult Specialty:: infectious diseases Reason for Consultation:: pna - History of Present Illness Chief Complaint: chest pain History of Present Illness: 76 year old female, with a significant past medical history of HTN, allergies, RA, and chronic lower back pain, admitted because of general malaise and chest pain since this morning. Patient states that she woke up this morning with nausea, dry heaves, mid-sternal chest pain 5/10, local non radiating, not related to position. She also states that she has a headache, slight dry cough, and is constipated. She reports runny nose with some congestion today morning She denies recent fevers, chills, lightheadedness or dizziness. She denies recent vomit, or diarrhea. She denies recent dysuria, frequency, urgency or hematuria. She denies recent shortness of breath. denies sick contact or recent travel currently patient does not have any complaints and breathng much better and patient mentions that chest pain has subsided patient is on embril patient received vanco and aztreonam - History Source History Provided By: Patient Limitations to Obtaining History: No Limitations - Past Medical History ...: No - Alcohol/Substance Use Hx Alcohol Use: No - Smoking History Smoking history: Never smoked Have you smoked in the past 12 months: No Home Medications - Allergies Allergies/Adverse Reactions: Allergies Allergy/AdvReac Type Severity Reaction Status Date / Time Penicillins Allergy Severe Swelling Verified 03/12/17 19:38 Sulfa (Sulfonamide AdvReac Intermediate Rash Verified 03/12/17 19:38 Antibiotics) - Home Medications Home Medications: Ambulatory Orders Atorvastatin Ca [Lipitor] 20 mg PO HS 05/26/13 Folic Acid 0.8 mg PO DAILY 05/26/13 Montelukast Na [Singulair -] 10 mg PO HS 05/26/13 Nadolol 80 mg PO DAILY 05/26/13 Flaxseed [Flaxseed Oil] 1,000 mg PO DAILY 06/01/13 Multivits-Min/FA/Lycopene/Lut [Centrum Silver Tablet] 1 each PO DAILY 06/01/13 Amlodipine Besylate [Norvasc -] 2.5 mg PO DAILY 04/14/15 Etanercept [Enbrel] 50 mg SQ WEEKLY 04/14/15 Hydrochlorothiazide [Hctz -] 12.5 mg PO DAILY 04/14/15 Methotrexate [Mexate -] 20 mg PO Q7D 04/14/15 Psyllium Husk (with Sugar) [Metamucil Powder] 538 gm PO BID 04/14/15 Aspirin [ASA -] 325 mg PO DAILY@0800 tablet 04/30/15 Review of Systems - Review of Systems Constitutional: reports: No Symptoms Eyes: reports: No Symptoms HENT: reports: No Symptoms Neck: reports: No Symptoms Cardiovascular: reports: Chest Pain Respiratory: reports: No Symptoms Gastrointestinal: reports: No Symptoms Genitourinary: reports: No Symptoms Musculoskeletal: reports: No Symptoms Integumentary: reports: No Symptoms Neurological: reports: No Symptoms Endocrine: reports: No Symptoms Hematology/Lymphatic: reports: No Symptoms Psychiatric: reports: No Symptoms Physical Exam Vital Signs: Vital Signs Temperature 98.5 F 03/13/17 06:00 Pulse Rate 83 03/13/17 10:00 Respiratory Rate 19 03/13/17 10:00 Blood Pressure 101/73 03/13/17 10:00 O2 Sat by Pulse Oximetry (%) 96 03/13/17 09:53 Constitutional: Yes: Well Nourished, No Distress, Calm Cardiovascular: Yes: Regular Rate and Rhythm Respiratory: Yes: Regular, CTA Bilaterally Gastrointestinal: Yes: Normal Bowel Sounds, Soft Musculoskeletal: Yes: WNL Extremities: Yes: WNL Neurological: Yes: Alert, Oriented Psychiatric: Yes: Alert, Oriented Labs: CBC, BMP 03/12/17 20:30 03/13/17 05:10 Imaging - Results Chest X-ray: Report Reviewed, Image Reviewed Assessment/Plan after looking at the history and examining the patient i doubt patient has infection or pna Problem List - Problems (1) SIRS (systemic inflammatory response syndrome) Code(s): R65.10 - SIRS OF NON-INFECTIOUS ORIGIN W/O ACUTE ORGAN DYSFUNCTION (2) HTN (hypertension) Code(s): I10 - ESSENTIAL (PRIMARY) HYPERTENSION (3) HLD (hyperlipidemia) Code(s): E78.5 - HYPERLIPIDEMIA, UNSPECIFIED (4) Rheumatoid arthritis Code(s): M06.9 - RHEUMATOID ARTHRITIS, UNSPECIFIED plan no abx at this time will see what cx show if cx remain negative nothing to be given
[2017-03-13] MEDS: SODIUM CHLORIDE 1,000 ML IV SCH ×2 (15:54→21:33)
[2017-03-13] MEDS ORDERED: MONTELUKAST NA 10 MG TABLET PO SCH (22:00)
[2017-03-13] MEDS ORDERED: ATORVASTATIN CA 20 MG TABLET (FP) PO SCH (22:00)
[2017-03-14] MEDS: HEPARIN NA (PORCINE) 5,000 UNITS/ML 1ML VIAL SQ SCH ×2 (05:19→14:55)
[2017-03-14 06:46] LABS: EOS % 7.5 % (0-4.5); HEMATOCRIT 39.9 % (32.4-45.2); HEMOGLOBIN 13.4 GM/dL (10.7-15.3); LYMPH % 8.7 % (8-40); MCH 32.7 pg (25.7-33.7); MCHC 33.5 g/dl (32.0-36.0); MEAN CELL VOLUME 97.6 fl (80-96); MONO % 11.7 % (3.8-10.2); NEUT % 71.1 % (42.8-82.8); PLATELET COUNT 207 K/MM3 (134-434); RBC 4.09 M/mm3 (3.60-5.2); RDW 14.1 % (11.6-15.6); WHITE BLOOD COUNT 5.7 K/mm3 (4.0-10.0)
[2017-03-14 07:16] LABS: ANION GAP 9 (8-16); BLOOD UREA NITROGEN 13 mg/dL (7-18); CALCIUM 8.1 mg/dL (8.5-10.1); CHLORIDE 106 mmol/L (98-107); CO2 26 mmol/L (21-32); CREATININE 0.7 mg/dL (0.55-1.02); GLUCOSE,RANDOM 76 mg/dL (74-106); MAGNESIUM 2.1 mg/dL (1.8-2.4); PHOSPHOROUS 2.3 mg/dL (2.5-4.9); POTASSIUM 3.9 mmol/L (3.5-5.1); SODIUM 141 mmol/L (136-145)
[2017-03-14] MEDS: ASPIRIN 325 MG TABLET PO SCH (08:18)
[2017-03-14] MEDS ORDERED: PT OWN MED DRAWER 7, Y5N ONE (10:28)
--- NOTE | 2017-03-14 10:59 | DS ---
Physical Examination Vital Signs: Vital Signs Temperature 36.8 C 03/14/17 06:00 Pulse Rate 77 03/14/17 06:00 Respiratory Rate 19 03/14/17 06:00 Blood Pressure 112/84 03/14/17 06:00 O2 Sat by Pulse Oximetry (%) 96 03/13/17 20:17 Constitutional: Yes: Well Nourished, No Distress, Calm Cardiovascular: Yes: Regular Rate and Rhythm. No: Gallop, Murmur, Rub Respiratory: Yes: Regular, CTA Bilaterally. No: Rales, Rhonchi, Wheezes Gastrointestinal: Yes: Normal Bowel Sounds. No: Distention, Tenderness Extremities: Yes: WNL Edema: No Labs: CBC, BMP 03/14/17 05:10 03/14/17 05:10 Discharge Summary Reason For Visit: FEVER PNEUMONIA CHEST PAIN Current Active Problems HLD (hyperlipidemia) (Acute) HTN (hypertension) (Acute) Rheumatoid arthritis (Acute) SIRS (systemic inflammatory response syndrome) (Acute) Hospital Course: (1) SIRS (systemic inflammatory response syndrome) Code(s): R65.10 - SIRS OF NON-INFECTIOUS ORIGIN W/O ACUTE ORGAN DYSFUNCTION (2) HTN (hypertension) Code(s): I10 - ESSENTIAL (PRIMARY) HYPERTENSION (3) HLD (hyperlipidemia) Code(s): E78.5 - HYPERLIPIDEMIA, UNSPECIFIED (4) Rheumatoid arthritis Code(s): M06.9 - RHEUMATOID ARTHRITIS, UNSPECIFIED Ms Rosas is a very pleasant 76 year old female who comes in with SIRS. There was concern for systemic bacterial infection and she was admitted and originally started on broad spectrum antibiotics. She improved after hydration and one dose of antibiotics and she was seen by Dr Rousseau. Her antibiotics were not continued and she was observed. She continued to improve with conservative management. Suspect patient had a viral infection that cleared. She is now feeling well and without complaint. She is safe for discharge home with follow up. 32 minutes spent in preparation of this discharge Condition: Good - Instructions Diet, Activity, Other Instructions: resume previous diet and activity Referrals: Jan Dodson MD [Primary Care Provider] - Disposition: HOME - Home Medications Comprehensive Discharge Medication List: Ambulatory Orders Atorvastatin Ca [Lipitor] 20 mg PO HS 05/26/13 Folic Acid 0.8 mg PO DAILY 05/26/13 Montelukast Na [Singulair -] 10 mg PO HS 05/26/13 Nadolol 80 mg PO DAILY 05/26/13 Flaxseed [Flaxseed Oil] 1,000 mg PO DAILY 06/01/13 Multivits-Min/FA/Lycopene/Lut [Centrum Silver Tablet] 1 each PO DAILY 06/01/13 Amlodipine Besylate [Norvasc -] 2.5 mg PO DAILY 04/14/15 Etanercept [Enbrel] 50 mg SQ WEEKLY 04/14/15 Hydrochlorothiazide [Hctz -] 12.5 mg PO DAILY 04/14/15 Methotrexate [Mexate -] 20 mg PO Q7D 04/14/15 Psyllium Husk (with Sugar) [Metamucil Powder] 538 gm PO BID 04/14/15 Aspirin [ASA -] 325 mg PO DAILY@0800 tablet 04/30/15
[2017-03-14] MEDS: FOLIC ACID 1 MG TABLET (FP) PO SCH (11:16)
[2017-03-14] MEDS ORDERED: DOCUSATE SODIUM 100 MG CAPSULE (FP) PO ONE (11:37)
[2017-03-14 14:57] VITALS: BP 100/60; PULSE 80; TEMP 98.3
--- NOTE | 2017-03-14 15:32 | PN ---
Progress Note, Physician History of Present Illness: stable no complaints doing well - Current Medication List Current Medications: Active Medications Acetaminophen (Tylenol -) 650 mg PO Q6H PRN PRN Reason: FEVER OR PAIN Last Admin: 03/13/17 06:35 Dose: 650 mg Amlodipine Besylate (Norvasc -) 2.5 mg PO DAILY [facility] Last Admin: 03/14/17 11:17 Dose: 2.5 mg Aspirin (Asa -) 325 mg PO DAILY@0800 [facility] Last Admin: 03/14/17 08:18 Dose: 325 mg Atorvastatin Calcium (Lipitor -) 20 mg PO HS [facility] Last Admin: 03/13/17 21:33 Dose: 20 mg Folic Acid (Folic Acid -) 1 mg PO DAILY [facility] Last Admin: 03/14/17 11:16 Dose: 1 mg Heparin Sodium (Porcine) (Heparin -) 5,000 unit SQ TID [facility] Last Admin: 03/14/17 14:55 Dose: Not Given Hydrochlorothiazide (Hctz -) 12.5 mg PO DAILY [facility] Last Admin: 03/14/17 11:17 Dose: 12.5 mg Sodium Chloride (Normal Saline -) 1,000 mls @ 75 mls/hr IV ASDIR [facility] Last Admin: 03/13/17 21:33 Dose: 75 mls/hr Montelukast Sodium (Singulair -) 10 mg PO HS [facility] Last Admin: 03/13/17 21:33 Dose: 10 mg Nadolol (Corgard -) 80 mg PO DAILY [facility] Last Admin: 03/14/17 11:19 Dose: 80 mg - Objective Vital Signs: Vital Signs Temperature 98.3 F 03/14/17 14:00 Pulse Rate 80 03/14/17 14:00 Respiratory Rate 18 03/14/17 14:00 Blood Pressure 100/60 03/14/17 14:00 O2 Sat by Pulse Oximetry (%) 98 03/14/17 09:00 Constitutional: Yes: No Distress, Calm Cardiovascular: Yes: Regular Rate and Rhythm Respiratory: Yes: Regular, CTA Bilaterally Gastrointestinal: Yes: Normal Bowel Sounds, Soft Musculoskeletal: Yes: WNL Extremities: Yes: WNL Neurological: Yes: Alert, Oriented Psychiatric: Yes: Alert, Oriented Labs: CBC, BMP 03/14/17 05:10 03/14/17 05:10 INR, PTT INR 1.05 (0.82-1.09) 03/12/17 20:30 Assessment/Plan after looking at the history and examining the patient i doubt patient has infection or pna Problem List - Problems (1) SIRS (systemic inflammatory response syndrome) Code(s): R65.10 - SIRS OF NON-INFECTIOUS ORIGIN W/O ACUTE ORGAN DYSFUNCTION (2) HTN (hypertension) Code(s): I10 - ESSENTIAL (PRIMARY) HYPERTENSION (3) HLD (hyperlipidemia) Code(s): E78.5 - HYPERLIPIDEMIA, UNSPECIFIED (4) Rheumatoid arthritis Code(s): M06.9 - RHEUMATOID ARTHRITIS, UNSPECIFIED all cx negative plan no abx rest as per primary team f/u with primary
== END 2017-03-14 15:39 | disposition home or self-care (01) | DRG 866 ==
LOC: JER 19:18 → JERBED 22:25 → J2W 03-13 00:05
PROVIDERS: ADMIT Internal Medicine; ATTEND Internal Medicine
DX: B33.8 Other specified viral diseases (principal); R65.10 Systemic inflammatory response syndrome (SIRS) of non-infectious origin without acute organ dysfunction; I10 Essential (primary) hypertension; E78.5 Hyperlipidemia, unspecified; M54.5 Low back pain; M06.80 Other specified rheumatoid arthritis, unspecified site; R11.2 Nausea with vomiting, unspecified; R07.89 Other chest pain; Z88.0 Allergy status to penicillin; Z96.651 Presence of right artificial knee joint
CPT/HCPCS: 36415; 71045-TC; 80048; 80053; 81003; 82550; 82803; 83036; 83605; 83735; 83880; 84100; 84484; 85025; 85610; 85651; 85730; 86140; 86850; 86900; 86901; 87040; 87086; 87804; 87899; 93005; 93010; 99284-25; J1644

== ENCOUNTER 2019-03-19 06:19 | Inpatient (IN) | payer BC, OTHER ==
[2019-03-11 12:12] VITALS: BMI 32.9
[2019-03-19] MEDS ORDERED: TRANEXAMIC ACID 1000 MG/10 ML VIAL IVPUSH ONE (07:10)
[2019-03-19] MEDS ORDERED: CEFAZOLIN 2 GM in DEXTROSE 5%-WATER - 50 ML IVPB ONE (07:10)
[2019-03-19] MEDS ORDERED: VANCOMYCIN 1,000 MG VIAL (RESTRICTED TO ID ONLY) ONE ×2 (07:30→10:37)
--- NOTE | 2019-03-19 07:59 | HP ---
[facility] - Chief Complaint Chief Complaint: right hip pain - Past Medical History Allergies/Adverse Reactions: Allergies Allergy/AdvReac Type Severity Reaction Status Date / Time Penicillins Allergy Severe Swelling Verified 03/19/19 07:50 Sulfa (Sulfonamide AdvReac Intermediate Rash Verified 03/19/19 07:50 Antibiotics) - Current Medications Current Medications: Home Medications Medication Instructions Recorded Atorvastatin Ca [Lipitor] 20 mg PO HS 05/26/13 Montelukast Na [Singulair -] 10 mg PO HS 05/26/13 Nadolol 80 mg PO HS 05/26/13 Multivits-Min/FA/Lycopene/Lut 1 each PO DAILY 06/01/13 [Centrum Silver Tablet] Amlodipine Besylate [Norvasc -] 2.5 mg PO DAILY 04/14/15 Etanercept [Enbrel] 50 mg SQ WEEKLY 04/14/15 Hydrochlorothiazide [Hctz -] 12.5 mg PO HS 04/14/15 Methotrexate [Mexate -] 20 mg PO Q7D 04/14/15 Psyllium Husk (with Sugar) 538 gm PO DAILY 04/14/15 [Metamucil Powder] Aspirin [ASA -] 81 mg PO DAILY 03/11/19 Folic Acid 1 mg PO DAILY 03/11/19 [place]-3 Fatty Acids/Fish Oil [Fish 1 each PO DAILY 03/11/19 Oil 1,000 mg Capsule] [facility] Physical Exam - Physical Examination Vital Signs: Vital Signs Period Temp Pulse Resp BP Sys/Tang Pulse Ox Last 24 Hr 97.5 F 72 16 124/73 95 General Appearance: Well Nourished, Well Developed, Alert & Oriented x3 ENT: Clear Lung: Normal air movement Extremities: Other (right hip- + ttp, dec rom, nvi, xrays show grade 4 hip djd) Neurological: Intact, Alert, Oriented [facility] Impression/Plan - Impression/Plan Impression: right hip djd Operative Procedure: right ryne thr Date to be Performed: 03/19/19
[2019-03-19] MEDS ORDERED: ceFAZolin SODIUM 1 GM VIAL ONE ×2 (08:05→08:24)
[2019-03-19] MEDS ORDERED: SUCCINYLCHOLINE CHLORIDE 200 MG/10 ML SYRINGE ONE (08:05)
[2019-03-19] MEDS ORDERED: BUPIVACAINE HCL/PF 0.5% (5 MG/ML) 30 ML VIAL IJ ONE (08:18)
[2019-03-19] MEDS ORDERED: MIDAZOLAM HCL 2 MG/2 ML SINGLE DOSE VIAL ONE ×2 (08:18→09:49)
[2019-03-19] MEDS ORDERED: PROPOFOL 20 ML ONE (09:51)
[2019-03-19] MEDS ORDERED: ROCURONIUM BROMIDE 50 MG/5 ML VIAL ONE (09:52)
[2019-03-19] MEDS ORDERED: MAG HYDROX/AL HYDROX/SIMETH 30 ML UNIT-DOSE CUP PO PRN (09:59)
[2019-03-19] MEDS ORDERED: ONDANSETRON 4 MG/2 ML VIAL IVPUSH PRN ×2 (09:59→11:34)
[2019-03-19] MEDS ORDERED: ePHEDrine SULFATE 50 MG/1 ML AMPULE ONE (09:59)
[2019-03-19] MEDS ORDERED: MAGNESIUM HYDROX 2400MG/30ML ORAL SUSPENSION 30 ML CUP PO PRN (09:59)
[2019-03-19] MEDS ORDERED: [UNRECOGNIZED DRUG - OTHER] PO SCH (10:00)
[2019-03-19] MEDS ORDERED: LACTATED RINGERS SOLUTION 1,000 ML IV SCH (10:00)
[2019-03-19] MEDS ORDERED: ONDANSETRON 4 MG/2 ML VIAL ONE (10:34)
[2019-03-19] MEDS ORDERED: DEXAMETHASONE SOD PHOSPHATE 4 MG/1 ML VIAL ONE (10:34)
[2019-03-19] MEDS ORDERED: VANCOMYCIN 1,000 MG VIAL (RESTRICTED TO ID ONLY) IVPB ONE (10:57)
[2019-03-19] MEDS ORDERED: NEOSTIGMINE METHYLSULFATE 0.5 MG/ML - 10 ML MDV ONE (11:17)
[2019-03-19] MEDS ORDERED: GLYCOPYRROLATE 0.2 MG/1 ML VIAL ONE (11:18)
--- NOTE | 2019-03-19 11:23 | OP ---
Operative Note - Note: Operative Date: 03/19/19 (daya) Pre-Operative Diagnosis: right knee djd Operation: right ryne tkr Post-Operative Diagnosis: Same as Pre-op Surgeon: Keith Ceballos Payer Specialist: Olman Jules Anesthesia: General, Local Specimens Removed: bone fragments Estimated Blood Loss (mls): 150
[2019-03-19] MEDS ORDERED: PROMETHAZINE HCL 25 MG/1 ML VIAL IVPUSH PRN (11:34)
[2019-03-19] MEDS ORDERED: oxyCODONE HCL 5 MG TABLET PO PRN ×2 (11:34)
[2019-03-19] MEDS ORDERED: ACETAMINOPHEN 325 MG TABLET (FP) ONE (12:38)
[2019-03-19] MEDS ORDERED: ACETAMINOPHEN 325 MG TABLET (FP) PO SCH (14:00)
--- NOTE | 2019-03-19 16:28 | SPEC ---
DATE OF OPERATION: 03/19/2019 PREOPERATIVE DIAGNOSIS: Degenerative joint disease, right hip. POSTOPERATIVE DIAGNOSIS: Degenerative joint disease, right hip. PROCEDURE PERFORMED: Right total hip replacement with robotic-assisted navigation (MAKOplasty). SURGICAL ATTENDING: Africa Ceballos MD BOW MAKER PRODUCTION: ADAM Christian ANESTHESIA: Regional and spinal. CLOSURE: A Shellie total hip system with a Trident II press-fit acetabular shell, a number 6 Accolade II femoral stem, a 36 standard patellofemoral head. Number 1 Vicryl for fascia, 0 and 2-0 subcutaneous, and 3-0 V-Loc for skin with skin glue, 4-0 undyed Vicryl for pin sites. ESTIMATED BLOOD LOSS: Less than 100 mL. COMPLICATIONS: None. CONDITION: To the recovery room in stable condition. DESCRIPTION OF PROCEDURE: The patient was taken to the operating room on March 19, 2019. General and regional anesthesia was administered by the anesthesiologist. IV Kefzol and TXA were administered prophylactically prior to the case. The patient was placed in the lateral decubitus position will all prominences well-padded. The right hip area was prepped and draped in the usual sterile fashion. Using 3 small stab incisions over the iliac crest, 3 threaded pins were drilled in power fashion through the 2 tables of the crest. These pins were fastened and the navigation array for the Joshua navigation system. Next, a 12 to 15-cm curved longitudinal incision over the posterolateral aspect of the greater trochanter was incised. Hemostasis was achieved with Bovie cautery. Sharp dissection was carried down to level of the fascia. The fascia was opened the entire length of the incision, spreading the fibers of the gluteus kayode in the direction of origin. A Charnley retractor was placed in this layer. Care was taken not to impale the sciatic nerve. The short external rotators were detached off the insertion of the greater trochanter and peeled off the capsule. A posterior capsulotomy was then performed. A check point was malleted into the greater trochanter and a point on the inferior pole of the patella was obtained as well. These 2 points were used to assess the preoperative offset and limb lengths of the hip. The hip was then dislocated. The femoral neck was then osteotomized down to the appropriate level as directed by the navigation device. Anterior and posterior retractors were placed, exposing the acetabulum. A circumferential labral excision was performed. A check point was malleted into the acetabulum as well. Multiple sites inside the acetabulum and around the rim were utilized to register the acetabulum with the navigation device. An excellent registration of less than 0.5 mm was obtained. The hip was then reamed with the appropriate reamer down to the appropriate depth, with the appropriate orientation and version as assessed on our preoperative plan for this patient. The reamer was removed and the acetabulum was inspected to have good bleeding surfaces throughout. The real acetabular cup was then malleted down into place, with the holes in the appropriate position, until an excellent fixation was obtained. No screws were necessary. The navigation device ensured appropriate orientation and version, with the depth as predetermined. The appropriate liner was then clipped into place. Attention was directed to the femur. The proximal femur was prepared by use of a box chisel, a canal finder and serial broaches until the broach achieved excellent rigidity in the proximal femur with the appropriate version being applied. A calcar planer was used to smooth off the calcar flush with the trial components. A trial reduction with the appropriate head was done, and the hip was reduced. The hip was taken through a range of motion from full extension with external rotation to marked flexion, and was stable at 90 degrees of flexion. It was stable to marked abduction and internal rotation, with a positive hang test and negative telescoping. Limb lengths were ascertained visually as well as with the navigation device to be within the targeted range for this patient. The trial component was removed. The real component was then malleted into place. The head was cold-welded to the trunnion, and the hip was reduced. Range of motion, stability and limb lengths were as described in the trial component. Then, the hip was pulse antibiotic irrigated. Vancomycin powder was placed in the hip joint. The capsule was closed. The fascia was then closed as well using No. 1 Vicryl interrupted suture, 0 and 2-0 subcutaneous, and 3-0 V-Loc for the skin. Vicryl 4-0 undyed was used to close the pin sites after the pins were removed. All check points were also removed. Sterile Aquacel dressing was applied. The patient was awakened from anesthesia and transferred into the supine position. Bilateral SCDs and an abduction pillow were placed. X-rays revealed excellent position of the components. The patient was transferred to the recovery room in stable condition, with no complications. Estimated blood loss was less than 100 mL. AFRICA CEBALLOS M.D. [place]/[id number]
[2019-03-19] MEDS: CEFAZOLIN 2 GM/D5W 2 GM/50 ML ML IVPB SCH (17:51)
[2019-03-19] MEDS: ACETAMINOPHEN 325 MG TABLET (FP) PO SCH (17:52)
[2019-03-19] MEDS: amLODIPine BESYLATE 2.5 MG TABLET (FP) PO SCH (17:53)
[2019-03-19] MEDS: HYDROCHLOROTHIAZIDE 12.5 MG CAPSULE (FP) PO SCH (21:23)
[2019-03-19] MEDS: ATORVASTATIN CA 20 MG TABLET (FP) PO SCH (21:23)
[2019-03-19] MEDS: SENNOSIDES/DOCUSATE COMBO (SENNA PLUS) TABLET (UD) PO SCH (21:23)
[2019-03-19] MEDS: MONTELUKAST NA 10 MG TABLET PO SCH (21:23)
[2019-03-19] MEDS ORDERED: NADOLOL 20 MG TABLET (FP) PO SCH (22:00)
[2019-03-20] MEDS: CEFAZOLIN 2 GM/D5W 2 GM/50 ML ML IVPB SCH (02:12)
[2019-03-20] MEDS: ACETAMINOPHEN 325 MG TABLET (FP) PO SCH ×4 (02:12→17:39)
[2019-03-20 07:50] LABS: HEMATOCRIT 34.1 % (32.4-45.2); HEMOGLOBIN 11.6 GM/dl (10.7-15.3); MCH 32.7 pg (25.7-33.7); MCHC 33.9 g/dl (32.0-36.0); MEAN CELL VOLUME 96.3 fl (80-96); MEAN PLT VOLUME 8.5 fl (7.5-11.1); PLATELET COUNT 229 K/MM3 (134-434); RBC 3.54 M/mm3 (3.60-5.2)
[2019-03-20] MEDS: ASPIRIN 325 MG TABLET PO SCH (08:30)
[2019-03-20] MEDS: MULTIVITAMINS (DAILY MVI) TABLET (FP) PO SCH (09:14)
[2019-03-20] MEDS: PANTOPRAZOLE 40 MG TABLET PO SCH (09:14)
[2019-03-20] MEDS: SENNOSIDES/DOCUSATE COMBO (SENNA PLUS) TABLET (UD) PO SCH ×2 (09:14→21:20)
--- NOTE | 2019-03-20 16:32 | PN ---
Progress Note (short form) - Note Progress Note: Pt seen and examined. She is on POD #1 s/p R THR, doing well. Did well with P.T. today, can ambulate. Pain well controlled. Tolerating regular diet. AVSS LLE is NVI Good ROM at the right knee, ankle, foot, toes with little to no pain. Dressing CDI Overall doing very well on POD #1. Plan is con't P.T., DC home tomorrow. F/U with DR Ceballos next week
[2019-03-20] MEDS: amLODIPine BESYLATE 2.5 MG TABLET (FP) PO SCH (17:38)
--- NOTE | 2019-03-20 18:09 | PN ---
Progress Note (short form) - Note Progress Note: ANESTHESIA POSTOP 78 YO FEMALE POD#1 S/P JAQUAN, GETA, PNB Sitting in chair. Eating dinner. Pain adequately controlled VSS, Afebrile Continue current care. Encouraged active participation in PT and use of IS
[2019-03-20] MEDS: MONTELUKAST NA 10 MG TABLET PO SCH (21:20)
[2019-03-20] MEDS: HYDROCHLOROTHIAZIDE 12.5 MG CAPSULE (FP) PO SCH (21:20)
[2019-03-20] MEDS: ATORVASTATIN CA 20 MG TABLET (FP) PO SCH (21:20)
[2019-03-20] MEDS ORDERED: NADOLOL 20 MG TABLET (FP) PO SCH (22:00)
[2019-03-21] MEDS: ACETAMINOPHEN 325 MG TABLET (FP) PO SCH ×2 (01:07→06:21)
[2019-03-21 06:36] VITALS: BP 119/65; PULSE 94; TEMP 98.6
[2019-03-21 07:55] LABS: HEMATOCRIT 33.7 % (32.4-45.2); HEMOGLOBIN 11.5 GM/dl (10.7-15.3); MCHC 34.1 g/dl (32.0-36.0); MEAN CELL VOLUME 96.8 fl (80-96); MEAN PLT VOLUME 8.6 fl (7.5-11.1); PLATELET COUNT 218 K/MM3 (134-434); RBC 3.48 M/mm3 (3.60-5.2); WHITE BLOOD COUNT 10.3 K/mm3 (4.0-10.8)
--- NOTE | 2019-03-21 08:05 | PN ---
Progress Note (short form) - Note Progress Note: Ortho Pt seen and examined s/p right ryne thr pod #2 Selected Entries 03/21/19 06:00 Temperature 98.6 F Pulse Rate 94 H Respiratory 18 Rate Blood Pressure 119/65 Laboratory Tests 03/21/19 07:05 WBC 10.3 Hgb 11.5 Hct 33.7 Plt Count 218 dressing c/d/i, calf soft nt, nvi a/p PT hip precautions dvt ppx pain control d/c home today f/u in 1 week
--- NOTE | 2019-03-21 08:06 | DS ---
Physical Examination Vital Signs: Vital Signs Temperature 98.6 F 03/21/19 06:00 Pulse Rate 94 H 03/21/19 06:00 Respiratory Rate 18 03/21/19 06:00 Blood Pressure 119/65 03/21/19 06:00 O2 Sat by Pulse Oximetry (%) 95 03/21/19 06:00 Labs: CBC, BMP 03/21/19 07:05 Discharge Summary Problems reviewed: Yes Reason For Visit: OSTEOARTHRITIS Procedures: Principal: right thr Hospital Course: admitted for elective right ryne thr, post-op per protocol, stable for d/c Condition: Good - Instructions Diet, Activity, Other Instructions: Post-op Instructions-Total Hip Replacement Call the office for a follow-up appointment in 1 week - [phone] Aspirin 325mg daily for 6 weeks. Pain medication was sent into your pharmacy. Apply Graduated Compression Stockings (TEDs) to both lower extremities- remove daily for hygiene ONLY Apply Sequential Compression Device (SCDs) to both Lower extremities remove for PT and hygiene ONLY Apply cold packs to affected area for 15 minutes every 2 hours. Physical Therapist will come to your home for the first 5 days. You will be set up with outpatient PT at your first post-operative visit. Patient may ambulate as tolerated-encourage self care (at least every 2-3 hours while awake) with walker or cane Maintain Aquacel (waterproof) dressing to operative wound (will be removed by surgeon at first office visit) Shower with Aquacel dressing in place-if Aquacel integrity compromised, remove and apply dry sterile dressing and notify Orthopedist. DO NOT SHOWER unless Orthopedists approves without Aquacel dressing CONTACT THE OFFICE FOR ANY CHANGE IN YOUR CONDITION (for example-fever greater than 102 degrees, excessive bleeding from operative site, purulent drainage, severe swelling or pain) GO TO THE EMERGENCY ROOM IF THERE IS A MEDICAL EMERGENCY Hip Precautions: * Keep a rolled towel under affected heel while in bed or chair (to keep knee in extension) * Dependent upon approach: * Posterior - do not cross legs; do not sit on low chairs or toilets. * If you have any questions, please do not hesitate to call the office - . Referrals: Keith Ceballos MD [Staff Physician] - - Home Medications Comprehensive Discharge Medication List: Ambulatory Orders Atorvastatin Ca [Lipitor] 20 mg PO HS 05/26/13 Montelukast Na [Singulair -] 10 mg PO HS 05/26/13 Nadolol 80 mg PO HS 05/26/13 Multivits-Min/FA/Lycopene/Lut [Centrum Silver Tablet] 1 each PO DAILY 06/01/13 Amlodipine Besylate [Norvasc -] 2.5 mg PO DAILY 04/14/15 Etanercept [Enbrel] 50 mg SQ WEEKLY 04/14/15 Hydrochlorothiazide [Hctz -] 12.5 mg PO HS 04/14/15 Methotrexate [Mexate -] 20 mg PO Q7D 04/14/15 Psyllium Husk (with Sugar) [Metamucil Powder] 538 gm PO DAILY 04/14/15 Aspirin [ASA -] 81 mg PO DAILY 03/11/19 Folic Acid 1 mg PO DAILY 03/11/19 [place]-3 Fatty Acids/Fish Oil [Fish Oil 1,000 mg Capsule] 1 each PO DAILY
[2019-03-21] MEDS: ASPIRIN 325 MG TABLET PO SCH (08:10)
[2019-03-21] MEDS: SENNOSIDES/DOCUSATE COMBO (SENNA PLUS) TABLET (UD) PO SCH (09:23)
[2019-03-21] MEDS: PANTOPRAZOLE 40 MG TABLET PO SCH (09:23)
[2019-03-21] MEDS: MULTIVITAMINS (DAILY MVI) TABLET (FP) PO SCH (09:23)
--- NOTE | 2019-03-21 10:32 | PATH ---
Surgical Pathology Report Patient Name: HUE MUHAMMAD Med. Rec. #: [id number] /Age/Gender: 1940 (Age: 78) / F Account: <[id number]> Location: [facility] Taken: 03/19/2019 Received: 03/19/2019 Reported: 03/21/2019 Physicians: Keith Ceballos M.D. Specimen(s) Received RIGHT FEMORAL HEAD Clinical History Osteoarthritis right hip Final Diagnosis BONE AND SOFT TISSUE, RIGHT HIP, REPLACEMENT: DEGENERATIVE JOINT DISEASE. Electronically Signed Rudy Lafleur M.D. Gross Description Received in formalin, labeled "right femoral head," is a 4.5 x 4.5 x 4.3 cm. femoral head with a 0.8 cm in length portion of femoral neck attached. The margin of resection is smooth. There is a 4.8 cm in greatest dimension area of eburnation present. The remaining articular surface is covarrubias-yellow and diffusely granular. The underlying trabecular bone is yellow and hard. A care support representative section is submitted in one cassette, following decalcification. /03/20/2019 [facility]03/20/2019
== END 2019-03-21 14:03 | disposition home health service (06) | DRG 470 ==
LOC: FASUSAT 06:19 → FM/S 07:11 → EDSTATUS 08:00 → FM/S 13:06 → FASUSAT 13:06 → FM/S 17:29 → UNDOADMIN 17:29 → FM/S 17:30
PROVIDERS: ADMIT Orthopaedic Surgery; ATTEND Orthopaedic Surgery
PROC: 8E0Y0CZ Robotic Assisted Procedure of Lower Extremity, Open Approach (ICD-10-PCS; 2019-03-19)
PROC: 0SR90JA Replacement of Right Hip Joint with Synthetic Substitute, Uncemented, Open Approach (ICD-10-PCS; principal; 2019-03-19 10:16)
DX: M16.11 Unilateral primary osteoarthritis, right hip (principal)
CPT/HCPCS: 36415; 73502-TC-RT-FY; 85027; 94760; 97116-GP; 97163-GP

== ENCOUNTER 2021-01-29 15:41 | Emergency (ER) | payer BC ==
[2021-01-29 16:31] VITALS: BP 134/86; PULSE 98; TEMP 97.9; BMI 29.5
[2021-01-29] MEDS ORDERED: diazePAM 5 MG TABLET PO ONE (16:50)
[2021-01-29] MEDS ORDERED: ACETAMINOPHEN 325 MG TABLET (FP) PO ONE (16:51)
[2021-01-29] MEDS ORDERED: KETOROLAC TROMETHAMINE 30 MG/1 ML VIAL IM ONE (17:06)
[2021-01-29] MEDS ORDERED: KETOROLAC TROMETHAMINE 30 MG/1 ML VIAL ONE (17:13)
[2021-01-29] MEDS ORDERED: diazePAM 5 MG TABLET ONE (17:13)
== END 2021-01-29 19:38 | disposition home or self-care (01) ==
LOC: JER 15:41
PROC: 3E0233Z Introduction of Anti-inflammatory into Muscle, Percutaneous Approach (ICD-10-PCS; principal; 2021-01-29)
DX: S76.811A Strain of other specified muscles, fascia and tendons at thigh level, right thigh, initial encounter (principal); X50.0XXA Overexertion from strenuous movement or load, initial encounter
CPT/HCPCS: 73523-TC-FY; 73560-TC-LT-FY; 99284-25

== ENCOUNTER 2022-05-04 04:21 | Day surgery (SDC) | payer BC ==
[2022-05-02 09:27] VITALS: BMI 31.7
[~2022-05-04 04:21] MED LIST: ACETAMINOPHEN 325 MG TABLET (FP) PO PRN; EPINEPHrine/PF 1 MG/1 ML (1:1,000) AMPULE SQ ONE
[2022-05-04] MEDS ORDERED: LIDOCAINE HCL/PF 1% SDV 5ML VIAL ONE (07:28)
[2022-05-04] MEDS ORDERED: BSS (NA/CA/MG/K) BALANCED SALT SOLUTION OPHTH SOLN 15 ML BOTTLE ONE (07:28)
[2022-05-04] MEDS ORDERED: POVIDONE-IODINE 5% OPHTHALMIC PREP 30 ML SOLUTION ONE (07:28)
[2022-05-04] MEDS ORDERED: TRYPAN BLUE 0.5 ML DISP.SYRIN ONE (07:28)
[2022-05-04] MEDS ORDERED: TETRACAINE 0.5% OPHTH SOLN 2 ML BOTTLE ONE (07:28)
[2022-05-04] MEDS ORDERED: CYCLOPENTOLATE HCL 1% OPHTH SOLN 2 ML BOTTLE ONE (09:02)
[2022-05-04] MEDS ORDERED: KETOROLAC TROMETHAMINE 0.5% EYE DROP 1 DROP DROPS ONE ×2 (09:02→09:03)
[2022-05-04] MEDS ORDERED: TROPICAMIDE 1% OPHTH SOLN 15 ML BOTTLE ONE (09:02)
[2022-05-04] MEDS ORDERED: PHENYLEPHRINE 2.5% OPTHALMIC DROP 2ML BOTTLE ONE (09:02)
[2022-05-04] MEDS ORDERED: OFLOXACIN 0.3% OPHTHALMIC SOLUTION 5 ML BOTTLE ONE (09:03)
[2022-05-04] MEDS: KETOROLAC TROMETHAMINE 0.5% EYE DROP 1 DROP DROPS OP SCH ×3 (09:20→09:30)
[2022-05-04] MEDS: PHENYLEPHRINE 2.5% OPHTH SOLN 15 ML BOTTLE OP SCH ×3 (09:20→09:30)
[2022-05-04] MEDS: TROPICAMIDE 1% OPHTH SOLN 15 ML BOTTLE OP SCH ×3 (09:20→09:30)
[2022-05-04] MEDS: CYCLOPENTOLATE HCL 1% OPHTH SOLN 2 ML BOTTLE OP SCH ×3 (09:20→09:30)
[2022-05-04] MEDS: OFLOXACIN 0.3% OPHTHALMIC SOLUTION 5 ML BOTTLE OP SCH ×3 (09:20→09:30)
[2022-05-04] MEDS ORDERED: MIDAZOLAM HCL 2 MG/2 ML SINGLE DOSE VIAL ONE (10:40)
[2022-05-04] MEDS ORDERED: TETRACAINE 0.5% OPHTH SOLN 2 ML BOTTLE OS ONE (10:42)
[2022-05-04] MEDS ORDERED: POVIDONE-IODINE 5% OPHTHALMIC PREP 30 ML SOLUTION OS ONE (10:48)
[2022-05-04] MEDS ORDERED: BSS (NA/CA/MG/K) BALANCED SALT SOLUTION OPHTH SOLN 15 ML BOTTLE OS ONE (10:51)
[2022-05-04] MEDS ORDERED: LIDOCAINE 1% P/F 10 MG/ML VIAL SNB ONE (10:52)
[2022-05-04] MEDS ORDERED: TRYPAN BLUE 0.5 ML DISP.SYRIN IO ONE (10:53)
[2022-05-04] MEDS ORDERED: CHONDROITIN SU A/HYALUR SOD 1 KIT IO ONE (10:54)
[2022-05-04] MEDS ORDERED: EPINEPHrine/PF 1 MG/1 ML (1:1,000) AMPULE SQ ONE (10:59)
[2022-05-04 11:50] VITALS: TEMP 97.8
[2022-05-04 12:22] VITALS: BP 117/85; PULSE 75; RESP 18
== END 2022-05-04 12:00 | disposition home or self-care (01) ==
LOC: JASU-SURG 04:21
PROVIDERS: ATTEND Ophthalmology
PROC: 08RK3JZ Replacement of Left Lens with Synthetic Substitute, Percutaneous Approach (ICD-10-PCS; principal; 2022-05-04 11:00)
DX: H26.9 Unspecified cataract (principal); H18.512 Endothelial corneal dystrophy, left eye
CPT/HCPCS: V2632

== ENCOUNTER 2022-08-24 04:47 | Day surgery (SDC) | payer BC, OTHER ==
[2022-08-23 15:38] VITALS: BMI 31.9
[~2022-08-24 04:47] MED LIST changes: -EPINEPHrine/PF 1 MG/1 ML (1:1,000) AMPULE SQ ONE
[2022-08-24] MEDS ORDERED: LIDOCAINE HCL/PF 2% SDV 5ML VIAL ONE (07:32)
[2022-08-24] MEDS ORDERED: TROPICAMIDE 1% OPHTH SOLN 15 ML BOTTLE ONE (07:32)
[2022-08-24] MEDS ORDERED: POVIDONE-IODINE 5% OPHTHALMIC PREP 30 ML SOLUTION ONE (07:33)
[2022-08-24] MEDS ORDERED: CYCLOPENTOLATE HCL 1% OPHTH SOLN 2 ML BOTTLE ONE (07:33)
[2022-08-24] MEDS ORDERED: LIDOCAINE HCL/PF 1% SDV 5ML VIAL ONE (07:33)
[2022-08-24] MEDS ORDERED: OFLOXACIN 0.3% OPHTHALMIC SOLUTION 5 ML BOTTLE ONE (09:19)
[2022-08-24] MEDS: OFLOXACIN 0.3% OPHTHALMIC SOLUTION 5 ML BOTTLE OP SCH ×3 (09:23→09:47)
[2022-08-24] MEDS ORDERED: PHENYLEPHRINE 2.5% OPTHALMIC DROP 2ML BOTTLE ONE (11:26)
[2022-08-24] MEDS ORDERED: PROPOFOL 20 ML ONE (11:40)
[2022-08-24] MEDS ORDERED: DEXAMETHASONE SOD PHOSPHATE 4 MG/1 ML VIAL ONE (11:42)
[2022-08-24] MEDS ORDERED: ONDANSETRON 4 MG/2 ML VIAL ONE (11:42)
[2022-08-24] MEDS ORDERED: MIDAZOLAM HCL 2 MG/2 ML SINGLE DOSE VIAL ONE (11:42)
[2022-08-24] MEDS ORDERED: LIDOCAINE HCL/PF 2% SDV 5ML VIAL INF ONE (11:43)
[2022-08-24] MEDS ORDERED: BUPIVACAINE HCL/PF 0.75% 10 ML VIAL NR ONE (11:43)
[2022-08-24] MEDS ORDERED: POVIDONE-IODINE 5% OPHTHALMIC PREP 30 ML SOLUTION OS ONE (11:45)
[2022-08-24] MEDS ORDERED: BSS (NA/CA/MG/K) BALANCED SALT SOLUTION OPHTH SOLN 15 ML BOTTLE OS ONE (11:58)
[2022-08-24] MEDS ORDERED: CHONDROITIN SU A/HYALUR SOD 1 KIT IO ONE (11:59)
[2022-08-24] MEDS ORDERED: LIDOCAINE HCL 1% PRESERVATIVE FREE - 30ML VIAL IO ONE (11:59)
[2022-08-24] MEDS ORDERED: TRYPAN BLUE 0.5 ML DISP.SYRIN IO ONE (12:00)
[2022-08-24] MEDS ORDERED: EPINEPHrine/PF 1 MG/1 ML (1:1,000) AMPULE SQ ONE (12:05)
[2022-08-24] MEDS ORDERED: CYCLOPENTOLATE HCL 1% OPHTH SOLN 2 ML BOTTLE OS ONE (12:35)
[2022-08-24] MEDS ORDERED: PHENYLEPHRINE 2.5% OPHTH SOLN 15 ML BOTTLE OS ONE (12:35)
[2022-08-24] MEDS ORDERED: TROPICAMIDE 1% OPHTH SOLN 15 ML BOTTLE OS ONE (12:35)
[2022-08-24] MEDS ORDERED: ACETYLCHOLINE 1:100 INTRA-OCUL 20 MG/2 ML KIT IO ONE (12:40)
[2022-08-24] MEDS ORDERED: TRIAMCINOLONE ACET 40MG/1ML VIAL ONE (12:43)
[2022-08-24] MEDS ORDERED: TRIAMCINOLONE ACET 40MG/1ML VIAL NR ONE (13:03)
[2022-08-24] MEDS ORDERED: ONDANSETRON 4 MG/2 ML VIAL IVPUSH PRN (13:12)
[2022-08-24] MEDS ORDERED: LACTATED RINGERS SOLUTION 1,000 ML IV SCH (13:15)
[2022-08-24 15:59] VITALS: BP 144/92; PULSE 88; RESP 16; TEMP 98
== END 2022-08-24 16:25 | disposition home or self-care (01) ==
LOC: JASU-SURG 04:47
PROVIDERS: ATTEND Ophthalmology
PROC: 08R9XKZ Replacement of Left Cornea with Nonautologous Tissue Substitute, External Approach (ICD-10-PCS; 2022-08-24)
PROC: 08R9XKZ Replacement of Left Cornea with Nonautologous Tissue Substitute, External Approach (ICD-10-PCS; 2022-08-24)
PROC: 08R9XKZ Replacement of Left Cornea with Nonautologous Tissue Substitute, External Approach (ICD-10-PCS; principal; 2022-08-24 11:00)
DX: H18.512 Endothelial corneal dystrophy, left eye (principal)
CPT/HCPCS: 65756; 65757; V2785; 87070; 87102; 87210; 88304-TC; 94760; C1889

== ENCOUNTER 2022-08-31 04:20 | Day surgery (SDC) | payer BC, OTHER ==
[2022-08-30 12:27] VITALS: BMI 31.9
[~2022-08-31 04:20] MED LIST changes: +OFLOXACIN 0.3% OPHTHALMIC SOLUTION 5 ML BOTTLE OP SCH
[2022-08-31] MEDS ORDERED: EPINEPHrine/PF 1 MG/1 ML (1:1,000) AMPULE ONE (07:13)
[2022-08-31] MEDS ORDERED: BSS (NA/CA/MG/K) BALANCED SALT SOLUTION OPHTH SOLN 15 ML BOTTLE ONE (07:13)
[2022-08-31] MEDS ORDERED: POVIDONE-IODINE 5% OPHTHALMIC PREP 30 ML SOLUTION ONE (07:13)
[2022-08-31] MEDS ORDERED: LIDOCAINE HCL/PF 1% SDV 5ML VIAL ONE (07:13)
[2022-08-31] MEDS ORDERED: TETRACAINE 0.5% OPHTH SOLN 2 ML BOTTLE ONE (07:14)
[2022-08-31] MEDS ORDERED: TROPICAMIDE 1% OPHTH SOLN 15 ML BOTTLE ONE (07:48)
[2022-08-31] MEDS ORDERED: CYCLOPENTOLATE HCL 1% OPHTH SOLN 2 ML BOTTLE ONE (07:49)
[2022-08-31] MEDS ORDERED: LIDOCAINE HCL/PF 2% SDV 5ML VIAL INF ONE ×2 (08:23→11:18)
[2022-08-31] MEDS ORDERED: TETRACAINE 0.5% OPHTH SOLN 2 ML BOTTLE OS ONE (08:23)
[2022-08-31] MEDS ORDERED: LIDOCAINE HCL 1% PRESERVATIVE FREE - 30ML VIAL IO ONE ×3 (08:24→11:27)
[2022-08-31] MEDS ORDERED: BUPIVACAINE HCL/PF 0.75% 10 ML VIAL NR ONE ×2 (08:24→11:18)
[2022-08-31] MEDS ORDERED: BSS (NA/CA/MG/K) BALANCED SALT SOLUTION OPHTH SOLN 15 ML BOTTLE OS ONE ×3 (08:24→11:26)
[2022-08-31] MEDS ORDERED: POVIDONE-IODINE 5% OPHTHALMIC PREP 30 ML SOLUTION OS ONE ×3 (08:24→11:22)
[2022-08-31] MEDS ORDERED: CHONDROITIN SU A/HYALUR SOD 1 KIT IO ONE (08:25)
[2022-08-31] MEDS ORDERED: TROPICAMIDE 1% OPHTH SOLN 15 ML BOTTLE OS ONE ×3 (08:26→11:30)
[2022-08-31] MEDS ORDERED: OFLOXACIN 0.3% OPHTHALMIC SOLUTION 5 ML BOTTLE ONE ×2 (09:07→09:17)
[2022-08-31] MEDS ORDERED: CYCLOPENTOLATE HCL 1% OPHTH SOLN 2 ML BOTTLE OS ONE ×2 (09:20→11:30)
[2022-08-31] MEDS ORDERED: PHENYLEPHRINE 2.5% OPTHALMIC DROP BOTTLE OS ONE ×2 (09:22→11:30)
[2022-08-31] MEDS ORDERED: MIDAZOLAM HCL 2 MG/2 ML SINGLE DOSE VIAL ONE (10:56)
[2022-08-31] MEDS ORDERED: TRIAMCINOLONE ACET 40MG/1ML VIAL ONE (11:05)
[2022-08-31] MEDS ORDERED: ACETYLCHOLINE 1:100 INTRA-OCUL 20 MG/2 ML KIT ONE (11:12)
[2022-08-31] MEDS ORDERED: PROPOFOL 20 ML ONE (11:15)
[2022-08-31] MEDS ORDERED: ONDANSETRON 4 MG/2 ML VIAL ONE (11:53)
[2022-08-31] MEDS ORDERED: LACTATED RINGERS SOLUTION 1,000 ML IV SCH (12:15)
[2022-08-31 18:02] VITALS: BP 128/75; PULSE 76; RESP 14; TEMP 98
== END 2022-08-31 14:45 | disposition home or self-care (01) ==
LOC: JASU-SURG 04:20
PROVIDERS: ATTEND Ophthalmology
PROC: 08SK3ZZ Reposition Left Lens, Percutaneous Approach (ICD-10-PCS; 2022-08-31)
PROC: 08R9XKZ Replacement of Left Cornea with Nonautologous Tissue Substitute, External Approach (ICD-10-PCS; principal; 2022-08-31 11:00)
DX: T86.848 Other complications of corneal transplant (principal); Y77.2 Prosthetic and other implants, materials and accessory ophthalmic devices associated with adverse incidents; Y92.9 Unspecified place or not applicable
CPT/HCPCS: 94760

== ENCOUNTER 2023-07-12 04:22 | Day surgery (SDC) | payer BC ==
[2023-07-06 16:53] VITALS: BMI 31.7
[~2023-07-12 04:22] MED LIST changes: +CYCLOPENTOLATE HCL 1% OPHTH SOLN 2 ML BOTTLE OP SCH; +KETOROLAC TROMETHAMINE 0.5% EYE DROP 1 DROP DROPS OP SCH; +PHENYLEPHRINE 2.5% OPHTH SOLN 15 ML BOTTLE OP SCH; +TROPICAMIDE 1% OPHTH SOLN 15 ML BOTTLE OP SCH
[2023-07-12] MEDS ORDERED: KETOROLAC TROMETHAMINE 0.5% EYE DROP 1 DROP DROPS ONE (06:14)
[2023-07-12] MEDS ORDERED: CYCLOPENTOLATE HCL 1% OPHTH SOLN 2 ML BOTTLE ONE (06:14)
[2023-07-12] MEDS ORDERED: PHENYLEPHRINE 2.5% OPTHALMIC DROP 2ML BOTTLE ONE (06:14)
[2023-07-12] MEDS ORDERED: TROPICAMIDE 1% OPHTH SOLN 15 ML BOTTLE ONE (06:14)
[2023-07-12] MEDS ORDERED: OFLOXACIN 0.3% OPHTHALMIC SOLUTION 5 ML BOTTLE ONE (06:14)
[2023-07-12] MEDS: PHENYLEPHRINE 2.5% OPHTH SOLN 15 ML BOTTLE OD ONE ×3 (06:35→06:55)
[2023-07-12] MEDS: TROPICAMIDE 1% OPHTH SOLN 15 ML BOTTLE OD ONE ×3 (06:35→06:55)
[2023-07-12] MEDS: CYCLOPENTOLATE HCL 1% OPHTH SOLN 2 ML BOTTLE OD ONE ×3 (06:35→06:55)
[2023-07-12] MEDS: KETOROLAC TROMETHAMINE 0.5% EYE DROP 1 DROP DROPS OD ONE ×3 (06:35→06:55)
[2023-07-12] MEDS: OFLOXACIN 0.3% OPHTHALMIC SOLUTION 5 ML BOTTLE OD ONE ×3 (06:35→06:55)
[2023-07-12 06:38] VITALS: RESP 18
[2023-07-12] MEDS ORDERED: VANCOMYCIN 500 MG VIAL (RESTRICTED TO ID ONLY) ONE (07:16)
[2023-07-12] MEDS ORDERED: LIDOCAINE HCL/PF 1% SDV 5ML VIAL ONE (07:16)
[2023-07-12] MEDS ORDERED: EPINEPHrine/PF 1 MG/1 ML (1:1,000) AMPULE ONE (07:16)
[2023-07-12] MEDS ORDERED: TETRACAINE 0.5% OPHTH SOLN 2 ML BOTTLE ONE (07:17)
[2023-07-12] MEDS ORDERED: POVIDONE-IODINE 5% OPHTHALMIC PREP 30 ML SOLUTION ONE (07:17)
[2023-07-12] MEDS ORDERED: MIDAZOLAM HCL 2 MG/2 ML SINGLE DOSE VIAL ONE (07:39)
[2023-07-12] MEDS: TETRACAINE 0.5% OPHTH SOLN 2 ML BOTTLE TP ONE (08:06)
[2023-07-12] MEDS: POVIDONE-IODINE 5% OPHTHALMIC PREP 30 ML SOLUTION OD ONE (08:08)
[2023-07-12] MEDS: BSS (NA/CA/MG/K) BALANCED SALT SOLUTION OPHTH SOLN 15 ML BOTTLE OD ONE (08:20)
[2023-07-12] MEDS: CHONDROITIN SU A/HYALUR SOD 1 KIT IO ONE (08:21)
[2023-07-12] MEDS: LIDOCAINE HCL 1% PRESERVATIVE FREE - 30ML VIAL IO ONE (08:21)
[2023-07-12] MEDS: EPINEPHrine/PF 1 MG/1 ML (1:1,000) AMPULE SQ ONE (08:29)
[2023-07-12] MEDS: VANCOMYCIN 500 MG VIAL (RESTRICTED TO ID ONLY) IVPB ONE ×2 (08:39)
[2023-07-12] MEDS ORDERED: GLYCOPYRROLATE 0.2 MG/1 ML VIAL ONE (08:43)
[2023-07-12] MEDS ORDERED: ONDANSETRON 4 MG/2 ML VIAL ONE (08:43)
[2023-07-12 11:15] VITALS: BP 119/69; PULSE 78; TEMP 97.7
== END 2023-07-12 09:55 | disposition home or self-care (01) ==
LOC: JASU-SURG 04:22
PROVIDERS: ATTEND Ophthalmology
PROC: 08RJ3JZ Replacement of Right Lens with Synthetic Substitute, Percutaneous Approach (ICD-10-PCS; principal; 2023-07-12 08:00)
DX: H26.9 Unspecified cataract (principal)
CPT/HCPCS: V2632